=== PATIENT | male | born 1995 | race Caucasian/White ===

== ENCOUNTER 2019-03-04 19:52 | Emergency (ER) | payer BC ==
[~2019-03-04] VITALS: Ht 180.3 cm; Wt 99.8 kg
== END 2019-03-04 22:41 | disposition home or self-care (01) ==
LOC: ED 19:52
DX: S52.612A Displaced fracture of left ulna styloid process, initial encounter for closed fracture (principal); S52.592A Other fractures of lower end of left radius, initial encounter for closed fracture; V86.99XA Unspecified occupant of other special all-terrain or other off-road motor vehicle injured in nontraffic accident, initial encounter; Y93.89 Activity, other specified; Y92.89 Other specified places as the place of occurrence of the external cause; Y99.8 Other external cause status